=== PATIENT | female | born 1995 | race Two or more races ===

== ENCOUNTER 2022-06-17 14:12 | Emergency (ER) | payer OTHER ==
[2022-06-17] MEDS ORDERED: Albuterol/Ipratropium 3.0-0.5 MG/3 ML Neb Soln NEB ONE (14:47)
== END 2022-06-17 15:47 | disposition home or self-care (01) ==
LOC: JD.ED 14:12
DX: J40 Bronchitis, not specified as acute or chronic (principal); Z79.899 Other long term (current) drug therapy; Z20.822 Contact with and (suspected) exposure to COVID-19
CPT/HCPCS: 71045; 71045-26; 94640; 99285; J7620-GY; U0002

== ENCOUNTER 2022-08-07 08:47 | Emergency (ER) | payer OTHER | END 2022-08-07 11:50 | disposition home or self-care (01) | LOC: JD.ED 08:47 | DX: L04.0 Acute lymphadenitis of face, head and neck (principal); L98.8 Other specified disorders of the skin and subcutaneous tissue; B35.3 Tinea pedis | CPT/HCPCS: 71046; 71046-26; 99283 ==